=== PATIENT | female | born 1985 | race Caucasian/White ===

== ENCOUNTER 2017-11-01 22:57 | Emergency (ER) | payer SELFPAY ==
[~2017-11-01] VITALS: Ht 160 cm; Wt 62.0 kg
[2017-11-01 23:05] VITALS: Ht 160 cm; Wt 62.0 kg
== END 2017-11-02 01:52 | disposition left against medical advice (07) ==
LOC: FTE 22:57 → E/R 11-02 01:52
DX: Z53.21 Procedure and treatment not carried out due to patient leaving prior to being seen by health care provider (principal)

== ENCOUNTER 2017-11-04 17:24 | Inpatient (IN) | payer OTHER ==
[~2017-11-04] VITALS: Ht 162.6 cm; Wt 60.0 kg
[2017-11-04] MEDS ORDERED: ONDANSETRON 4 MG INJ IV STA (18:25)
[2017-11-04] MEDS ORDERED: KETOROLAC 30 MG INJ IV STA (18:25)
[2017-11-04] MEDS ORDERED: SODIUM CHLORIDE 0.9% 1L BAG IV* STA (18:25)
[2017-11-04 19:12] LABS: BASOPHILS % 0.2 % (0.0-2.0); EOSINOPHILS % 0.2 % (0.0-7.0); HEMATOCRIT 32.5 % (37.0-47.0); HEMOGLOBIN 11.1 g/dl (12.0-16.0); LYMPHOCYTES % 19.6 % (15.0-51.0); MEAN CORPUSCULAR HEMOGLOBIN 29.4 pg (29.0-33.0); MEAN CORPUSCULAR HGB CONC 34.2 g/dl (32.0-37.0); MEAN PLATELET VOLUME 9.1 fl (7.4-10.4); MONOCYTE # 0.4 10^3/ul (0.3-0.9); MONOCYTES % 7.7 % (0.0-11.0); NEUTROPHIL # 3.6 10^3/ul (1.6-7.5); NEUTROPHILS % 71.9 % (39.0-77.0); PLATELET COUNT 245 10^3/UL (140-415); RED BLOOD COUNT 3.78 10^6/ul (4.20-5.40); RED CELL DISTRIBUTION WIDTH 13.5 % (11.5-14.5)
[2017-11-04 19:31] LABS: ALANINE AMINOTRANSFERASE 51 IU/L (13-69); ALBUMIN 3.9 g/dl (3.3-4.9); ALBUMIN/GLOBULIN RATIO 1.02; ALKALINE PHOSPHATASE 84 IU/L (42-121); ANION GAP 14 (8-16); ASPARTATE AMINO TRANSFERASE 34 IU/L (15-46); BILIRUBIN,INDIRECT 0.1 mg/dl (0-1.1); BILIRUBIN,TOTAL 0.1 mg/dl (0.2-1.3); BLOOD UREA NITROGEN 9 mg/dl (7-20); CALCIUM 8.5 mg/dl (8.4-10.2); CARBON DIOXIDE 26 mmol/L (21-31); CHLORIDE 101 mmol/L (97-110); CREATININE 0.81 mg/dl (0.44-1.00); GLUCOSE 109 mg/dl (70-220); POTASSIUM 3.7 mmol/L (3.5-5.1); SODIUM 137 mmol/L (135-144); TOTAL PROTEIN 7.7 g/dl (6.1-8.1)
[2017-11-04 19:43] LABS: ADD UMIC YES; UR ASCORBIC ACID NEGATIVE (NEGATIVE); UR BACTERIA FEW /HPF (NONE SEEN); UR BILIRUBIN (Dip) NEGATIVE (NEGATIVE); UR BLOOD (Dip) 1+ mg/dL (NEGATIVE); UR CLARITY CLEAR (CLEAR); UR COLOR COLORLESS (YELLOW); UR GLUCOSE (Dip) NEGATIVE (NEGATIVE); UR KETONES (Dip) NEGATIVE (NEGATIVE); UR LEUKOCYTE ESTERASE (Dip) NEGATIVE Leu/ul (NEGATIVE); UR NITRITE (Dip) NEGATIVE (NEGATIVE); UR RBC 0 /HPF (0-5); UR SPECIFIC GRAVITY (Dip) 1.002 (1.003-1.030); UR TOTAL PROTEIN (Dip) NEGATIVE (NEGATIVE); UR UROBILINOGEN (Dip) NEGATIVE (NEGATIVE)
[2017-11-04 19:45] LABS: TROPONIN-I < 0.012 ng/ml (0.00-0.12)
--- NOTE | 2017-11-04 19:59 | RADRPT ---
PROCEDURE: XR Chest. CLINICAL INDICATION: Cough. Possible sepsis. TECHNIQUE: Single frontal view of the chest was obtained COMPARISON: None FINDINGS: The heart is normal in size. There are right perihilar consolidations consistent with pneumonia in the correct clinical context. No pleural effusions or pneumothorax is seen. The osseous structures are unremarkable. IMPRESSION: 1. Right perihilar consolidations consistent with pneumonia in the correct clinical context. RPTAT:AAJJ Physician João Date Time Electronically viewed and signed by Physician João on 11/04/2017 19:59 QL/
[2017-11-04] MEDS ORDERED: ACETAMINOPHEN 500 MG TAB PO STA (23:19)
[2017-11-04] MEDS ORDERED: IBUPROFEN 600 MG TAB PO ONE (23:30)
[2017-11-05] MEDS ORDERED: AZITHROMYCIN 250 MG TAB PO ONE (01:00)
[2017-11-05] MEDS ORDERED: CEFTRIAXONE 1 GM/50 ML (PMX) 50 ML IVPB ONE (01:00)
--- NOTE | 2017-11-05 01:10 | ERD ---
ER Documentation Chief Complaint Chief Complaint FEVER, BODYACHES, ONSET 1 WEEK HPI 36-year-old female presents with fever body aches cough for 1 week. Also has nausea and has vomited once. Denies any diarrhea. Has tried taking Tylenol at home which only temporarily reduces the fever which then returned. She has chest pain only with cough. She also feels generalized weakness without any focal weakness. ROS All systems reviewed and are negative except as per history of present illness. Medications Home Meds No Active Prescriptions or Reported Meds Allergies Allergies: Coded Allergies: Penicillins (Unverified Allergy, Intermediate, RASHES, 11/04/17) RE-ENTERED UNCODED ALLERGY CODED PMhx/Soc History of Surgery: Yes (c section ) Anesthesia Reaction: No Hx Neurological Disorder: No Hx Respiratory Disorders: No Hx Cardiac Disorders: No Hx Psychiatric Problems: No Hx Miscellaneous Medical Probl: No Hx Alcohol Use: No Hx Substance Use: No Smoking Status: Never smoker Physical Exam Vitals Vital Signs Date Time Temp Pulse Resp B/P Pulse Ox O2 Delivery O2 Flow Rate FiO2 11/05/17 00:35 100.1 96 20 100/59 97 Room Air 11/05/17 00:22 100.1 11/04/17 23:10 95 16 104/67 100 Room Air 11/04/17 23:01 102.4 11/04/17 17:35 102.6 124 18 137/76 100 Physical Exam Const: [] Distress, appears uncomfortable Head: Atraumatic Eyes: Normal Conjunctiva ENT: Normal External Ears, Nose and Mouth. Neck: Full range of motion..~ No meningismus. Resp: Clear to auscultation bilaterally coughs on exam Cardio: Regular tachycardia, no murmurs Abd: Soft, non tender, non distended. Normal bowel sounds Skin: No petechiae or rashes Back: No midline or flank tenderness Ext: No cyanosis, or edema Neur: Awake and alert and oriented 3, no focal deficits Psych: Normal Mood and Affect Result Diagram: 11/04/17189911/04/171899 Results 24 hrs Laboratory Tests Test 11/04/17 19:00 11/04/17 19:05 11/04/17 21:10 11/04/17 23:10 White Blood Count 5.010^3/ul Red Blood Count 3.7810^6/ul Hemoglobin 11.1g/dl Hematocrit 32.5% Mean Corpuscular Volume 86.0fl Mean Corpuscular Hemoglobin 29.4pg Mean Corpuscular Hemoglobin Concent 34.2g/dl Red Cell Distribution Width 13.5% Platelet Count 77297^3/UL Mean Platelet Volume 9.1fl Neutrophils % 71.9% Lymphocytes % 19.6% Monocytes % 7.7% Eosinophils % 0.2% Basophils % 0.2% Nucleated Red Blood Cells % 0.0/100WBC Neutrophils # 3.610^3/ul Lymphocytes # 1.010^3/ul Monocytes # 0.410^3/ul Eosinophils # 0.010^3/ul Basophils # 0.010^3/ul Nucleated Red Blood Cells # 0.010^3/ul Sodium Level 137mmol/L Potassium Level 3.7mmol/L Chloride Level 101mmol/L Carbon Dioxide Level 26mmol/L Anion Gap 14 Blood Urea Nitrogen 9mg/dl Creatinine 0.81mg/dl Glucose Level 109mg/dl Lactic Acid Level 1.5mmol/L 0.9mmol/L 0.9mmol/L Calcium Level 8.5mg/dl Total Bilirubin 0.1mg/dl Direct Bilirubin 0.00mg/dl Indirect Bilirubin 0.1mg/dl Aspartate Amino Transf (AST/SGOT) 34IU/L Alanine Aminotransferase (ALT/SGPT) 51IU/L Alkaline Phosphatase 84IU/L Troponin I < 0.012ng/ml Total Protein 7.7g/dl Albumin 3.9g/dl Globulin 3.80g/dl Albumin/Globulin Ratio 1.02 Urine Color COLORLESS Urine Clarity CLEAR Urine pH 8.0 Urine Specific [place] 1.002 Urine Ketones NEGATIVEmg/dL Urine Nitrite NEGATIVEmg/dL Urine Bilirubin NEGATIVEmg/dL Urine Urobilinogen NEGATIVEmg/dL Urine Leukocyte Esterase NEGATIVELeu/ul Urine Microscopic RBC 0/HPF Urine Microscopic WBC 0/HPF Urine Bacteria FEW/HPF Urine Hemoglobin 1+mg/dL Urine Glucose NEGATIVEmg/dL Urine Total Protein NEGATIVEmg/dl Current Medications Medications (Trade) Dose Ordered Sig/Alex Route PRN Reason Start Time Stop Time Status Last Admin Dose Admin Sodium Chloride (NS) 1,860 ml BOLUS OVER 2 HOURS STAT IV* 11/04/17 18:25 11/04/17 18:29 DC 12/22/17 19:01 Ondansetron HCl (Zofran Inj) 4 mg ONCE STAT IV 11/04/17 18:25 11/04/17 18:29 DC 11/04/17 19:01 Ketorolac Tromethamine (Toradol) 30 mg ONCE STAT IV 11/04/17 18:25 11/04/17 18:29 DC 11/04/17 19:01 Acetaminophen (Tylenol Tab) 1,000 mg ONCE STAT PO 11/04/17 23:19 11/04/17 23:20 DC 11/04/17 23:24 Ibuprofen 600 mg 600 mg ONCE ONCE PO 11/04/17 23:30 11/04/17 23:31 DC 11/04/17 23:24 Ceftriaxone Sodium (Rocephin) 50 ml @ 100 mls/hr ONCE ONCE IVPB 11/05/17 01:00 11/05/17 01:29 Azithromycin (Zithromax) 500 mg ONCE ONCE PO 11/05/17 01:00 11/05/17 01:01 DC Procedures/MDM Pneumonia with mild sepsis. Patient had difficult to control fever and felt too sick to want to leave the emergency room. She was given 30 cc/kg of IV fluid. Diagnosis of sepsis was not made until 2213 secondary to time for laboratory and x-ray results. She was then given Rocephin and azithromycin for community-acquired pneumonia. Cultures were taken. He does showed a few bacteria with no leukocyte esterase or increased white blood cells. Was given Toradol 30 mA IV was decreased her body aches. Also given Zofran. Dr. aragon is going to be admitted the patient to medical surgical floor for further workup Chest x-ray interpretation: Mild perihilar infiltrates, I see no widened mediastinum, no pulmonary edema, no pneumothorax, no fractures. automotive alignment specialist interpretation: Mild sinus tachycardia without other arrhythmias Departure Diagnosis: Primary Impression: Sepsis due to pneumonia Additional Impressions: Community acquired pneumonia Renal insufficiency Dehydration Normocytic anemia Condition: Serious MARGARETTENGHIARAJENDRAKEATON ELIZABETH Nov 05, 2017 01:10
[2017-11-05] MEDS ORDERED: ONDANSETRON 4 MG INJ IV PRN ×2 (01:30→06:30)
[2017-11-05] MEDS ORDERED: ACETAMINOPHEN 325 MG TAB PO PRN (01:30)
[2017-11-05 04:06] VITALS: TEMP 98.2
[2017-11-05 04:47] VITALS: Ht 162.6 cm; Wt 60.0 kg
[2017-11-05 05:09] VITALS: BP 93/53; PULSE 70; RESP 18
[2017-11-05] MEDS ORDERED: VANCOMYCIN IV PER PHARMACY XX SCH (06:30)
[2017-11-05] MEDS ORDERED: ALBUTEROL/IPRATROPIUM (NEB) 3 ML AMP HHN PRN (06:30)
[2017-11-05] MEDS ORDERED: NACL 0.9% 3 ML SYG IV SCH (06:30)
[2017-11-05 07:18] VITALS: BP 93/55; RESP 16
[2017-11-05] MEDS ORDERED: VANCOMYCIN 1.25 GM in SODIUM CHLORIDE 0.45 % 250 ML IVPB ONE (07:30)
[2017-11-05 08:31] LABS: BASOPHILS % 0.3 % (0.0-2.0); EOSINOPHILS % 0.6 % (0.0-7.0); HEMATOCRIT 28.5 % (37.0-47.0); HEMOGLOBIN 9.8 g/dl (12.0-16.0); LYMPHOCYTES # 1.5 10^3/ul (0.8-2.9); LYMPHOCYTES % 42.7 % (15.0-51.0); MEAN CORPUSCULAR HEMOGLOBIN 29.4 pg (29.0-33.0); MEAN CORPUSCULAR HGB CONC 34.4 g/dl (32.0-37.0); MEAN CORPUSCULAR VOLUME 85.6 fl (82.0-101.0); MEAN PLATELET VOLUME 9.3 fl (7.4-10.4); MONOCYTE # 0.3 10^3/ul (0.3-0.9); MONOCYTES % 9.5 % (0.0-11.0); NEUTROPHIL # 1.6 10^3/ul (1.6-7.5); NEUTROPHILS % 46.9 % (39.0-77.0); PLATELET COUNT 221 10^3/UL (140-415); RED BLOOD COUNT 3.33 10^6/ul (4.20-5.40); RED CELL DISTRIBUTION WIDTH 13.8 % (11.5-14.5); WHITE BLOOD COUNT 3.5 10^3/ul (4.8-10.8)
[2017-11-05 08:57] LABS: ALBUMIN 3.3 g/dl (3.3-4.9); ALBUMIN/GLOBULIN RATIO 0.97; BILIRUBIN,INDIRECT 0.2 mg/dl (0-1.1); BILIRUBIN,TOTAL 0.2 mg/dl (0.2-1.3); CALCIUM 8.4 mg/dl (8.4-10.2); CREATININE 0.65 mg/dl (0.44-1.00); MAGNESIUM 2.2 mg/dl (1.7-2.5); PHOSPHORUS 3.7 mg/dl (2.5-4.9); POTASSIUM 3.9 mmol/L (3.5-5.1); TOTAL PROTEIN 6.7 g/dl (6.1-8.1)
--- NOTE | 2017-11-05 08:57 | HP ---
Date/Time of Note Date/Time of Note DATE: 11/05/17 TIME: 08:55 Assessment/Plan VTE Prophylaxis VTE Prophylaxis Intervention: SCD's Lines/Catheters [facility] Saline Lock Urinary Cath still in place: No Assessment/Plan Assessment/Plan ASSESSMENT 32-year-old female with no significant past medical history who presents to the ER complaining of fever, cough and found to be septic 2/2 right perihilar pneumonia PLAN IV antibiotic Follow-up culture results Breathing treatments as needed HPI/ROS Admit Date/Time Admit Date/Time Nov 05, 2017 at 01:03 Hx of Present Illness This is a 32-year-old female with no significant past medical history who presents to the ER complaining of fever, cough, myalgia. Symptoms started a few days ago and have been progressively getting worse. When she presented to ER, she was febrile with a temperature of 102.6 with a heart rate of 124. Chest x-ray showed right perihilar consolidations consistent with pneumonia PMH/Family/Social Social History Smoking Status: Never smoker Exam/Review of Systems Vital Signs Vitals Vital Signs Date Time Temp Pulse Resp B/P Pulse Ox O2 Delivery O2 Flow Rate FiO2 11/05/17 07:18 98.5 66 16 93/55 100 11/05/17 05:09 Room Air Exam Constitutional: alert, oriented Head: atraumatic, normocephalic Eyes: EOMI, PERRL Respiratory: clear to auscultation, normal air movement Cardiovascular: regular rate and rhythm Gastrointestinal: non-tender, soft Extremities: normal pulses Labs Result Diagram: 11/05/17 0732 11/04/17 1900 Medications Medications Current Medications Ondansetron HCl 4 mg 4 mg Q6H PRN IV NAUSEA AND/OR VOMITING; Start 11/05/17 at 06:30 Vancomycin HCl 1.25 gm/Sodium Chloride 250 ml @ 83.333 mls/ hr ONCE ONCE IVPB Last administered on 11/05/17t 07:51; Admin Dose 83.333 MLS/HR; Start at 07:30; Stop 11/05/17 at 10:29 Vancomycin HCl/ Dextrose/Water (Vancocin/D5W) 150 ml @ 75 mls/hr Q8H IVPB ; Start 11/05/17 at 15:30 Miscellaneous Information (*Rx Drug Level Order Reminder*) VANCOMYCIN TROUGH ON 10/15... ONCE ONCE XX ; Start 11/06/17 at 14:30; Stop 11/06/17 at 14:31 MATIAS ALCALA MD Nov 05, 2017 08:57
[2017-11-05] MEDS: ALBUTEROL/IPRATROPIUM (NEB) 3 ML AMP HHN SCH ×3 (12:11→20:59)
[2017-11-05 14:35] VITALS: BP 97/57; RESP 16
[2017-11-05] MEDS: VANCOMYCIN 750 MG in DEXTROSE 5% 150 ML IVPB SCH ×2 (15:02→23:41)
--- NOTE | 2017-11-05 15:07 | PN ---
Date/Time of Note Date/Time of Note DATE: 11/05/17 TIME: 15:04 Assessment/Plan VTE Prophylaxis VTE Prophylaxis Intervention: SCD's Lines/Catheters IV [facility]from [facility] Saline Lock Urinary Cath still in place: No Assessment/Plan Chief Complaint/Hosp Course Assessment and Plan: 1. Pneumonia. continue on abx. appears to be improving 2. Anemia. Source unknown. Will check iron profile dispo/plan: appears to be overall improving. anticipate d/c within the next 24 hours of medically stable. discussed plan of care [facility] Dr. Holloway. Problems: Subjective 24 Hr Interval Summary Free Text/Dictation reports breathing better. no s/s of distress Exam/Review of Systems Vital Signs Vitals Vital Signs Date Time Temp Pulse Resp B/P Pulse Ox O2 Delivery O2 Flow Rate FiO2 11/05/17 14:35 99.4 79 16 97/57 94 11/05/17 12:12 21 11/05/17 05:09 Room Air Exam Constitutional: alert, oriented Psych: nl mood/affect Head: normocephalic Eyes: nl conjunctiva Neck: non-tender, supple Respiratory: clear to auscultation Cardiovascular: nl pulses, regular rate and rhythm Gastrointestinal: non-tender, soft Musculoskeletal: nl extremities to inspection, nl gait and stance Extremities: normal pulses Neurological: TOOTH GRINDER II-XII intact, nl mental status, nl speech Results Result Diagram: 11/05/17 0732 11/05/17 0732 Results 24 hrs Laboratory Tests Test 11/04/17 19:00 11/04/17 19:05 11/04/17 21:10 11/04/17 23:10 White Blood Count 5.0 # Red Blood Count 3.78 #L Hemoglobin 11.1 #L Hematocrit 32.5 L Mean Corpuscular Volume 86.0 Mean Corpuscular Hemoglobin 29.4 Mean Corpuscular Hemoglobin Concent 34.2 Red Cell Distribution Width 13.5 Platelet Count 245 Mean Platelet Volume 9.1 # Neutrophils % 71.9 Lymphocytes % 19.6 Monocytes % 7.7 Eosinophils % 0.2 Basophils % 0.2 Nucleated Red Blood Cells % 0.0 Neutrophils # 3.6 Lymphocytes # 1.0 Monocytes # 0.4 Eosinophils # 0.0 Basophils # 0.0 Nucleated Red Blood Cells # 0.0 Sodium Level 137 Potassium Level 3.7 Chloride Level 101 Carbon Dioxide Level 26 Anion Gap 14 Blood Urea Nitrogen 9 Creatinine 0.81 Glucose Level 109 Lactic Acid Level 1.5 0.9 0.9 Calcium Level 8.5 Total Bilirubin 0.1 L Direct Bilirubin 0.00 Indirect Bilirubin 0.1 Aspartate Amino Transf (AST/SGOT) 34 Alanine Aminotransferase (ALT/SGPT) 51 Alkaline Phosphatase 84 Troponin I < 0.012 Total Protein 7.7 Albumin 3.9 Globulin 3.80 H Albumin/Globulin Ratio 1.02 Urine Color COLORLESS Urine Clarity CLEAR Urine pH 8.0 Urine Specific [place] 1.002 L Urine Ketones NEGATIVE Urine Nitrite NEGATIVE Urine Bilirubin NEGATIVE Urine Urobilinogen NEGATIVE Urine Leukocyte Esterase NEGATIVE Urine Microscopic RBC 0 Urine Microscopic WBC 0 Urine Bacteria FEW A Urine Hemoglobin 1+ H Urine Glucose NEGATIVE Urine Total Protein NEGATIVE Test 11/05/17 07:32 White Blood Count 3.5 #L Red Blood Count 3.33 L Hemoglobin 9.8 L Hematocrit 28.5 L Mean Corpuscular Volume 85.6 Mean Corpuscular Hemoglobin 29.4 Mean Corpuscular Hemoglobin Concent 34.4 Red Cell Distribution Width 13.8 Platelet Count 221 Mean Platelet Volume 9.3 Neutrophils % 46.9 Lymphocytes % 42.7 Monocytes % 9.5 Eosinophils % 0.6 Basophils % 0.3 Nucleated Red Blood Cells % 0.0 Neutrophils # 1.6 Lymphocytes # 1.5 Monocytes # 0.3 Eosinophils # 0.0 Basophils # 0.0 Nucleated Red Blood Cells # 0.0 Sodium Level 140 Potassium Level 3.9 Chloride Level 106 Carbon Dioxide Level 26 Anion Gap 12 Blood Urea Nitrogen 7 Creatinine 0.65 Glucose Level 91 Calcium Level 8.4 Phosphorus Level 3.7 Magnesium Level 2.2 Total Bilirubin 0.2 Direct Bilirubin 0.00 Indirect Bilirubin 0.2 Aspartate Amino Transf (AST/SGOT) 32 Alanine Aminotransferase (ALT/SGPT) 47 Alkaline Phosphatase 69 Total Protein 6.7 # Albumin 3.3 Globulin 3.40 H Albumin/Globulin Ratio 0.97 Medications Medications Current Medications Ondansetron HCl 4 mg 4 mg Q6H PRN IV NAUSEA AND/OR VOMITING; Start 11/05/17 at 06:30 Vancomycin HCl/ Dextrose/Water (Vancocin/D5W) 150 ml @ 75 mls/hr Q8H IVPB Last administered on 11/05/17t 15:02; Admin Dose 75 MLS/HR; Start 12/23/17 at 15:30 Miscellaneous Information (*Rx Drug Level Order Reminder*) VANCOMYCIN TROUGH ON 10/15... ONCE ONCE XX ; Start 11/06/17 at 14:30; Stop 11/06/17 at 14:31 Influenza Virus Vaccine (Fluzone) 0.5 ml ONCE ONCE IM* ; Start 11/06/17 at 09: 00; Stop 11/06/17 at 09:01 EVITA READ Nov 05, 2017 15:07
[2017-11-05] MEDS: ACETAMINOPHEN 325 MG TAB PO PRN ×2 (16:44→21:44)
[2017-11-05 20:18] VITALS: BP 91/54; RESP 20
[2017-11-06] MEDS: ALBUTEROL/IPRATROPIUM (NEB) 3 ML AMP HHN SCH ×2 (01:55→08:37)
[2017-11-06 02:00] VITALS: BP 97/61; RESP 16
[2017-11-06 05:28] LABS: BASOPHILS % 0.5 % (0.0-2.0); EOSINOPHILS # 0.1 10^3/ul (0.0-0.5); EOSINOPHILS % 1.8 % (0.0-7.0); HEMATOCRIT 29.8 % (37.0-47.0); HEMOGLOBIN 9.7 g/dl (12.0-16.0); LYMPHOCYTES # 1.5 10^3/ul (0.8-2.9); LYMPHOCYTES % 38.5 % (15.0-51.0); MEAN CORPUSCULAR HEMOGLOBIN 28.5 pg (29.0-33.0); MEAN CORPUSCULAR HGB CONC 32.6 g/dl (32.0-37.0); MEAN CORPUSCULAR VOLUME 87.6 fl (82.0-101.0); MEAN PLATELET VOLUME 8.8 fl (7.4-10.4); MONOCYTE # 0.4 10^3/ul (0.3-0.9); MONOCYTES % 11.5 % (0.0-11.0); NEUTROPHIL # 1.8 10^3/ul (1.6-7.5); NEUTROPHILS % 47.4 % (39.0-77.0); PLATELET COUNT 238 10^3/UL (140-415); RED CELL DISTRIBUTION WIDTH 13.9 % (11.5-14.5); WHITE BLOOD COUNT 3.8 10^3/ul (4.8-10.8)
[2017-11-06 06:03] LABS: CALCIUM 8.7 mg/dl (8.4-10.2); CREATININE 0.64 mg/dl (0.44-1.00); PHOSPHORUS 4.8 mg/dl (2.5-4.9); POTASSIUM 4.3 mmol/L (3.5-5.1)
[2017-11-06] MEDS: VANCOMYCIN 750 MG in DEXTROSE 5% 150 ML IVPB SCH (06:32)
[2017-11-06 07:42] VITALS: BP 97/55; RESP 16
[2017-11-06] MEDS ORDERED: INFLUENZA VIRUS VACCINE 0.5 ML (DISPENSING) IM* ONE (09:00)
[2017-11-06] MEDS ORDERED: LEVO500T72 PO (10:30)
--- NOTE | 2017-11-06 10:31 | PDOCDIS ---
Discharge Instructions DIAGNOSIS Discharge Diagnosis 1. pneumonia HOME CARE INSTRUCTIONS: Diet Instructions: Regular FOLLOW UP/APPOINTMENTS Follow-up Plan 1. Follow up with your primary care provider in one week EVITA READ Nov 06, 2017 10:31
[2017-11-06] MEDS ORDERED: SACC250C PO (10:32)
[2017-11-06] MEDS ORDERED: LEVOFLOXACIN 500 MG TAB PO ONE (11:00)
[2017-11-06 13:00] LABS: IRON 18 ug/dl (35-150)
[2017-11-06 13:09] LABS: TOTAL IRON BINDING CAPACITY 244 ug/dl (241-421)
[2017-11-06 14:38] VITALS: BP 94/62; RESP 18
[2017-11-07] MEDS ORDERED: AZIT250T94 PO (15:03)
[2017-11-07] MEDS ORDERED: ONDA4TAB14 PO (15:03)
[2017-11-07] MEDS ORDERED: DIPH1TAB PO (15:03)
--- NOTE | 2017-11-10 23:46 | DS ---
Date/Time of Note Date/Time of Note DATE: 11/10/17 TIME: 23:43 Discharge Summary Admission/Discharge Info Admit Date/Time Nov 05, 2017 at 01:03 Discharge Date/Time Nov 06, 2017 at 14:45 Discharge Diagnosis 1. pneumonia Patient Condition: Stable Hospital Course This is a 32-year-old female with no past medical history who came to [facility] due to reports of cough and myalgia. She reported that symptoms started several days prior to admission. She reports that this progressively got worse. As such she went to [facility] for further evaluation. She was seen to have a temperature of 102.6 with a heart rate of 124 and x-ray consistent with pneumonia. She was noted to be septic with pneumonia. She was placed on antibiotics with very good response and she became afebrile during her stay. She is also seen to be anemic and was advised for outpatient consumption of supplemental iron. During her course of stay she did improve. The plan of care was discussed with the patient and patient did verbalize understanding. On the day of discharge patient was in stable condition Discussed plan of care with Dr. Holloway [facility] Active Scripts Azithromycin* (Zithromax*) 250 Mg Tablet, 250 MG PO .SANGITA DIRECTED, #6 TAB TAKE 500 MG (2 TABS) THE FIRST DAY THEN 250 MG (1 TAB) DAYS 2-5 Prov:JANEY MOE DO 11/07/17 Diphenoxylate HCl/Atropine (Lomotil 2.5-0.025 mg Tablet) 1 Each Tablet, 1 TAB PO QID Y for DIARRHEA, #10 TAB Prov:JANEY MOE DO 11/07/17 Ondansetron (Ondansetron Odt) 4 Mg Tab.rapdis, 4 MG PO Q6H Y for NAUSEA AND/OR VOMITING, #10 TAB Prov:JANEY MOE DO 11/07/17 Saccharomyces Boulardii* (Florastor*) 250 Mg Cap, 250 MG PO BID, #14 CAP Prov:EVITA READ 11/06/17 Levofloxacin* (Levaquin*) 500 Mg Tablet, 500 MG PO DAILY, #7 TAB Prov:EVITA READ 11/06/17 Follow-up Plan 1. Follow up with your primary care provider in one week Primary Care Provider [facility] Time spent on discharge: > 30 minutes EVITA READ Nov 10, 2017 23:46
== END 2017-11-06 14:45 | disposition home or self-care (01) | DRG 195 ==
LOC: FTE 17:24 → MS2 11-05 01:03
PROVIDERS: ADMIT Internal Medicine; ATTEND Internal Medicine
DX: J18.9 Pneumonia, unspecified organism (principal); D64.9 Anemia, unspecified; Z88.0 Allergy status to penicillin
CPT/HCPCS: 36415; 71010; 80048; 80053; 80202; 81001; 83540; 83605; 83735; 84100; 84484; 85025; 87040; 87086; 87400; 90686; 94640; 94664; 96374; 96375; J0696; J1885; J2405; J3370; J7030; J7050

== ENCOUNTER 2017-11-07 12:04 | Emergency (ER) | payer OTHER ==
[~2017-11-07] VITALS: Ht 160 cm; Wt 60.0 kg
[~2017-11-07 12:04] MED LIST: LEVO500T72 PO; SACC250C PO
[2017-11-07 12:07] VITALS: Ht 160 cm; Wt 60.0 kg
[2017-11-07] MEDS ORDERED: ACETAMINOPHEN 500 MG TAB PO STA (12:21)
[2017-11-07] MEDS ORDERED: IBUPROFEN 600 MG TAB PO ONE (12:30)
[2017-11-07] MEDS ORDERED: ONDANSETRON 4 MG INJ IV STA (13:25)
[2017-11-07] MEDS ORDERED: SOD CHLORIDE 0.9% 1,000 ML IV STA (13:25)
[2017-11-07] MEDS ORDERED: DIPH1TAB PO (15:03)
[2017-11-07] MEDS ORDERED: ONDA4TAB14 PO (15:03)
[2017-11-07] MEDS ORDERED: AZIT250T94 PO (15:03)
--- NOTE | 2017-11-07 15:05 | ERD ---
ER Documentation Chief Complaint Chief Complaint c/o dizziness , chills , on antibiotics for pneumonia HPI This is a 32-year-old who was discharged 2 days ago for pneumonia. The patient was given Levaquin and since taking his had some diarrhea and dizziness. Nonbloody diarrhea no mucus no abdominal pain she does have some nausea. She does have body aches. Her cough is much better. No fever. ROS All systems reviewed and are negative except as per history of present illness. Medications Home Meds Active Scripts Azithromycin* (Zithromax*) 250 Mg Tablet, 250 MG PO .ZPACK DIRECTED, #6 TAB TAKE 500 MG (2 TABS) THE FIRST DAY THEN 250 MG (1 TAB) DAYS 2-5 Prov:JANEY MOE DO 11/07/17 Diphenoxylate HCl/Atropine (Lomotil 2.5-0.025 mg Tablet) 1 Each Tablet, 1 TAB PO QID Y for DIARRHEA, #10 TAB Prov:JANEY MOE DO 11/07/17 Ondansetron (Ondansetron Odt) 4 Mg Tab.rapdis, 4 MG PO Q6H Y for NAUSEA AND/OR VOMITING, #10 TAB Prov:KIESHA MOESTOLOS A. DO 11/07/17 Saccharomyces Boulardii* (Florastor*) 250 Mg Cap, 250 MG PO BID, #14 CAP Prov:EVITA READ 11/06/17 Levofloxacin* (Levaquin*) 500 Mg Tablet, 500 MG PO DAILY, #7 TAB Prov:EVITA READ 11/06/17 Allergies Allergies: Coded Allergies: Penicillins (Unverified Allergy, Intermediate, RASHES, 11/04/17) RE-ENTERED UNCODED ALLERGY CODED PMhx/Soc History of Surgery: Yes (C section) Anesthesia Reaction: No Hx Neurological Disorder: No Hx Respiratory Disorders: No Hx Cardiac Disorders: No Hx Psychiatric Problems: No Hx Miscellaneous Medical Probl: No Hx Alcohol Use: No Hx Substance Use: No Hx Tobacco Use: No Smoking Status: Current every day smoker FmHx Family History: No coronary disease Physical Exam Vitals Vital Signs Date Time Temp Pulse Resp B/P Pulse Ox O2 Delivery O2 Flow Rate FiO2 11/07/17 12:07 97.2 94 18 116/86 99 Physical Exam Const: Well-developed, well-nourished Head: Atraumatic, normocephalic Eyes: Normal Conjunctiva, PERRLA, EOMI, normal sclera, no nystagmus ENT: Normal External Ears, Nose and Mouth, moist mucus membranes. Neck: Full range of motion. No meningismus, no lymphadenopathy. Resp: Clear to auscultation bilaterally, no wheezing, rhonchi, rales Cardio: Regular rate and rhythm, no murmurs, S1 S2 present Abd: Soft, non tender x 4, non distended. Normal bowel sounds, no guarding or rebound, no pulsitile abdominal masses or bruits Skin: No petechiae or rashes, no ecchymosis , no maculopapular rash Back: No midline or flank tenderness Ext: No cyanosis, or edema, FROM x 4, normal inspection, neurovascularly intact x 4 Neur: Awake and alert, STR 5/5 x 4, sensation intact x 4, no focal findings, cerebellum intact Psych: Normal Mood and Affect Results 24 hrs Current Medications Medications (Trade) Dose Ordered Sig/Alex Route PRN Reason Start Time Stop Time Status Last Admin Dose Admin Ibuprofen (Motrin) 600 mg ONCE ONCE PO 11/07/17 12:30 11/07/17 12:46 DC Acetaminophen 1000 mg 1,000 mg ONCE STAT PO 11/07/17 12:21 11/07/17 12:46 DC Sodium Chloride (NS) 1,000 ml @ 1,000 mls/hr Q1H STAT IV 11/07/17 13:25 11/07/17 14:24 DC 11/07/17 13:45 Ondansetron HCl (Zofran Inj) 4 mg ONCE STAT IV 11/07/17 13:25 11/07/17 13:27 DC 11/07/17 13:45 Procedures/MDM Patient received 1 L of normal saline and Zofran and feels much better. I feel she likely has some diarrhea induced antibiotics from Levaquin. We will switch to Zithromax. Her cough is much better clinically. We will discharge with Lomotil Zofran Z-Shawn Departure Diagnosis: Primary Impression: Diarrhea Diarrhea type: unspecified type Qualified Code: R19.7 - Diarrhea, unspecified type Condition: Stable Patient Instructions: Treating Diarrhea Additional Instructions: stop levaquin and start zithromax YENI MOEOLOS A. DO Nov 07, 2017 15:05
[2017-11-07 15:35] VITALS: BP 120/74; PULSE 77; RESP 18; TEMP 98.2
== END 2017-11-07 15:34 | disposition home or self-care (01) ==
LOC: E/R 12:04
DX: R19.7 Diarrhea, unspecified (principal); F17.210 Nicotine dependence, cigarettes, uncomplicated
CPT/HCPCS: 96374; J2405; J7030; Z7502

== ENCOUNTER 2017-11-12 21:25 | Emergency (ER) | END 2017-11-13 01:48 | disposition home or self-care (01) ==

== ENCOUNTER 2017-11-15 13:53 | Emergency (ER) | END 2017-11-15 21:00 | disposition left against medical advice (07) ==

== ENCOUNTER 2018-11-22 20:12 | Emergency (ER) | payer OTHER ==
[~2018-11-22] VITALS: Wt 67.7 kg
[~2018-11-22 20:12] MED LIST changes: +ACET500C5 PO; +AZIT250T PO; +DICY10CA40 PO; +DIPH1TAB PO; +IBUP-1542 PO; +LEVO500T48 PO; -LEVO500T72 PO; +ONDA4TAB14 PO
[2018-11-22 20:16] VITALS: BP 125/70; PULSE 74; RESP 18
[2018-11-22] MEDS ORDERED: BACI28.34 TOP (22:53)
[2018-11-22] MEDS ORDERED: IBUPROFEN 600 MG TAB PO ONE (23:00)
--- NOTE | 2018-11-22 23:11 | ERD ---
ER Documentation Chief Complaint Chief Complaint LAC TO RIGHT KNEE S/P FALL HPI 33-year-old female presents ED with right knee abrasion status post [place] fall [place] a park earlier today. Patient admits to some pain with walking. Patient denies any decreased range of motion, tingling, numbness, lack of sensation, fever, chills and other symptoms. Unsure if tetanus is up-to-date. ROS All systems reviewed and are negative except as per history of present illness. Medications Home Meds Active Scripts Bacitracin* (Bacitracin Zinc Oint*) 28.35 Gm Oint, 1 APPLIC TOP BID for 5 Days, TUB APPLI TO Prov:EDUAR DELONG PA-C 11/22/18 Acetaminophen* (Tylophen*) 500 Mg Capsule, 1 CAP PO Q6H PRN for PAIN AND OR ELEVATED TEMP, #20 CAP Prov:FARSHAD CAPELLAN NP 11/13/17 Ibuprofen* (Motrin*) 600 Mg Tab, 600 MG PO Q6H PRN for PAIN AND OR ELEVATED TEMP, #30 TAB Prov:FARSHAD CAPELLAN NP 11/13/17 Ondansetron (Ondansetron Odt) 4 Mg Tab.rapdis, 4 MG PO Q6H PRN for NAUSEA AND/OR VOMITING, #20 TAB Prov:FARSHAD CAPELLAN NP 11/13/17 Dicyclomine HCl (Dicyclomine HCl) 10 Mg Capsule, 20 MG PO QID, #20 CAP Prov:FARSHAD CAPELLAN NP 11/13/17 Azithromycin* (Zithromax*) 250 Mg Tablet, 250 MG PO .SANGITA DIRECTED, #6 TAB TAKE 500 MG (2 TABS) THE FIRST DAY THEN 250 MG (1 TAB) DAYS 2-5 Prov:JANEY MOE DO 11/07/17 Diphenoxylate HCl/Atropine (Lomotil 2.5-0.025 mg Tablet) 1 Each Tablet, 1 TAB PO QID PRN for DIARRHEA, #10 TAB Prov:JANEY MOE DO 11/07/17 Ondansetron (Ondansetron Odt) 4 Mg Tab.rapdis, 4 MG PO Q6H PRN for NAUSEA AND/OR VOMITING, #10 TAB Prov:JANEY MOE. DO 11/07/17 Saccharomyces Boulardii* (Florastor*) 250 Mg Cap, 250 MG PO BID, #14 CAP Prov:EVITA READ 11/06/17 Levofloxacin* (Levaquin*) 500 Mg Tablet, 500 MG PO DAILY, #7 TAB Prov:EVITA READ 11/06/17 Allergies Allergies: Coded Allergies: Penicillins (Unverified Allergy, Intermediate, RASHES, 11/04/17) RE-ENTERED UNCODED ALLERGY CODED PMhx/Soc History of Surgery: Yes (C section) Anesthesia Reaction: No Hx Neurological Disorder: No Hx Respiratory Disorders: No Hx Cardiac Disorders: No Hx Psychiatric Problems: No Hx Miscellaneous Medical Probl: No Hx Alcohol Use: No Hx Substance Use: No Hx Tobacco Use: No FmHx Family History: No diabetes Physical Exam Vitals Vital Signs Date Temp Pulse Resp B/P (MAP) Pulse Ox O2 O2 Flow FiO2 Time Delivery Rate 11/22/18 97.2 74 18 125/70 100 20:16 (88) Physical Exam Const: No acute distress Head: Atraumatic Eyes: Normal Conjunctiva ENT: Normal External Ears, Nose and Mouth. Neck: Full range of motion. No meningismus. Resp: Clear to auscultation bilaterally Cardio: Regular rate and rhythm, no murmurs Skin: Abrasion on right knee Psych: Normal Mood and Affect Results 24 hrs Current Medications Medications Dose Sig/Alex Start Time Status Last (Trade) Ordered Route PRN Stop Time Admin Dose Reason Admin Ibuprofen 600 mg ONCE ONCE 11/22/18 DC 11/22/18 (Motrin) PO 23:00 11/22/18 23:05 23:01 Procedures/MDM ER COURSE: The patient was given ibuprofen The medication was well tolerated and the patient reports improvement in symptoms. The patient was stable throughout ED course. I kept the patient and/or family informed of laboratory and diagnostic imaging results throughout the emergency room course. The patient was promptly evaluated and a treatment plan was devised based on H&P and other data. This plan was discussed with the patient who agreed and had no further questions or concerns prior to discharge. MEDICAL DECISION MAKIN-year-old female presents ED with abrasion to right knee. Wound care was provided in the emergency department. Patient refused tetanus in the emergency department. No evidence of compartment syndrome, neurologic injury, vascular injury, open joint, tendon laceration, fracture, dislocation, or foreign body. Patient's vitals are stable and pt can be managed with close out patient follow up. Advised patient to return to ED or to be seen by primary care for a 48 hour wound check. Return to ED with any worsening symptoms and if patient starts experiencing fever, chills, purulent drainage, warmth, swelling at laceration site this may be indications that wound has become infected and patient may need antibiotics. DISPOSITION PLAN: We discussed follow up with the patient's primary care doctor within 24 to 48 hours. Patient counseled regarding my diagnostic impression and care plan. Prior to discharge all questions answered. Pt agrees with treatment plan and understands strict return precautions. Precautionary instructions provided including instructions to return to the ER if not improving or for any worsening or changing symptoms or concerns. SPECIALIST FOLLOW UP RECOMMENDED: None Patient has been advised to follow up with primary care in 1-2 days. Disclaimer: Inadvertent spelling and grammatical errors are likely due to EHR/dictation software use and do not reflect on the overall quality of patient care. Also, please note that the electronic time recorded on this note does not necessarily reflect the actual time of the patient encounter. Blood Pressure Assessment: Patient's blood pressure was elevated (>120/80) but appears stable without evidence of hypertension emergency or urgency. The patient was counseled about the risks of hypertension and urged to pursue outpatient monitoring and therapy within a week with their primary care physician. Departure Diagnosis: Primary Impression: Abrasion, right knee, initial encounter Condition: Stable Patient Instructions: Abrasion Referrals: [facility] Usted se aaron hecho un examen mdico de control que le indica que no est en cee condicin que requiera tratamiento urgente en el Departamento de Emergencia. Un estudio ms profundo y el tratamiento de cerrato condicin pueden esperar sin ningn riesgo hasta que usted sea atendida/o en el consultorio de cerrato mdico o cee clnica. Es responsabilidad suya arreglar cee danyelle para el seguimiento del ashley. MANEJO DE CONDICIONES NO URGENTES EN EL FUTURO 1) Si usted tiene un mdico de atencin primaria: Usted debera llamar a cerrato mdico de atencin primaria antes de venir al departamento de emergencia. Despus de las horas de consultorio, cerrato doctor o cerrato asociado/a est disponible por telfono. El mdico o enfermero de kemi en el servicio telefnico puede asesorarle por sumaya medio para atender el problema, o ashley contrario se puede programar cee danyelle. 2) Si usted no tiene un mdico de atencin primaria: Llame al mdico o clnica de referencia que aparece abajo mark las horas de consultorio para hacer cee danyelle para que le vean. CLINICAS: [facility] [phone] [facility] [phone] [facility] [phone] [facility] [facility] [phone] [facility]. [facility] [phone] [address] [facility] [phone] [address] Additional Instructions: Paciente aconseja volver a Departamento de urgencias inmediatamente para sntomas nuevos o que empeoran . Paciente aconseja posteriores con el PCP en 1-2 dobbs . Paciente verbaliza la comprehensin y est de acuerdo con el tratamiento y el curso de accin. Si el paciente no tiene ninguna de atencin primaria pueden seguir con [facility] [address] [place] [address] [facility] + [address] [phone] EDUAR DELONG PA-C Nov 22, 2018 23:11
== END 2018-11-23 01:37 | disposition left against medical advice (07) ==
LOC: FTE 20:12
DX: S81.011A Laceration without foreign body, right knee, initial encounter (principal); W18.39XA Other fall on same level, initial encounter; Y92.830 Public park as the place of occurrence of the external cause
CPT/HCPCS: Z7502; Z7610; 99282